=== PATIENT | male | born 1980 | race American Indian/Alaskan Native ===

== ENCOUNTER 2019-08-05 03:19 | Emergency (ER) | payer SELFPAY ==
[2019-08-05] MEDS ORDERED: IBUPROFEN 600 MG TAB PO ONE ×2 (04:35→04:37)
[2019-08-05] MEDS ORDERED: ACETAMINOPHEN 325 MG TAB PO ONE (04:35)
[2019-08-05] MEDS ORDERED: ACETAMINOPHEN 325 MG TAB ONE (04:37)
--- NOTE | 2019-08-05 04:41 | XRay Report ---
LEFT HAND 3 VIEWS INDICATION / CLINICAL INFORMATION: left thumb injury. COMPARISON: None available. FINDINGS: No fracture, dislocation or soft tissue swelling is seen within the left hand or thumb. Joint spaces are well preserved. Signer Name: Reji Levy MD Signed: 08/05/2019 4:37 AM Workstation Name: [id number]
[2019-08-05 04:54] VITALS: BP 116/79
--- NOTE | 2019-08-05 04:57 | Emergency Department Report ---
ED Upper Extremity Inj HPI - General Chief Complaint: Extremity Injury, Upper Stated Complaint: LF THUMB PAIN Time Seen by Provider: 08/05/19 04:35 Source: patient Mode of arrival: Ambulatory Limitations: No Limitations - History of Present Illness Initial Comments: Patient is a 38-year-old male presents emergency room with complaints of left thumb pain that began around 1 AM. He states that his thumb got hit between a pallet and a door while at work. He states that he has fractured this thumb once in the past approximately 4 to 5 years ago. He denies any numbness or weakness. He has discomfort with movement. He states he also has a past medical history of asthma. He denies any allergies to medications. - Related Data Previous Rx's Medication Instructions Recorded Last Taken Type Naproxen 500 mg PO BID PRN #14 tablet 08/05/19 Unknown Rx Allergies Allergy/AdvReac Type Severity Reaction Status Date / Time No Known Allergies Allergy Unverified 08/05/19 03:54 ED Review of Systems ROS: Stated complaint: LF THUMB PAIN Other details as noted in HPI Comment: All other systems reviewed and negative ED Past Medical Hx - Past Medical History Hx Asthma: Yes - Surgical History Past Surgical History?: Yes Additional Surgical History: "rods and screws in R leg and ankle" - Medications Home Medications: Home Medications Medication Instructions Recorded Confirmed Last Taken Type Naproxen 500 mg PO BID PRN #14 tablet 08/05/19 Unknown Rx ED Physical Exam - General Limitations: No Limitations General appearance: alert, in no apparent distress - Head Head exam: Present: atraumatic, normocephalic - Eye Eye exam: Present: normal appearance - ENT ENT exam: Present: mucous membranes moist - Extremities Exam Extremities exam: Present: other (ttp to the left thumb interphalangeal joint, very small amount of edema, FROM of the left thumb, no obvious deformity, neurovascularly intact) - Neurological Exam Neurological exam: Present: alert, oriented X3 - Psychiatric Psychiatric exam: Present: normal affect, normal mood - Skin Skin exam: Present: warm, dry, intact ED Course Vital Signs 08/05/19 08/05/19 03:54 05:05 Temperature 98.1 F Pulse Rate 65 71 Respiratory 18 16 Rate Blood Pressure 116/79 O2 Sat by Pulse 96 100 Oximetry ED Medical Decision Making - Radiology Data Radiology results: report reviewed LEFT HAND 3 VIEWS INDICATION / CLINICAL INFORMATION: left thumb injury. COMPARISON: None available. FINDINGS: No fracture, dislocation or soft tissue swelling is seen within the left hand or thumb. Joint spaces are well preserved. Signer Name: Reji Levy MD Signed: 08/05/2019 4:37 AM Workstation Name: [id number] Transcribed By: TL Dictated By: Reji Levy MD Electronically Authenticated By: Reji Levy MD Signed Date/Time: 08/05/19436 DD/ 5 TD/TT: - Medical Decision Making Patient is a 38-year-old male presents emergency room with complaints of left thumb pain that began around 1 AM. He states that his thumb got hit between a pallet and a door while at work. He states that he has fractured this thumb once in the past approximately 4 to 5 years ago. He denies any numbness or weakness. He has discomfort with movement. He states he also has a past medical history of asthma. He denies any allergies to medications. on exam: ttp to the left thumb interphalangeal joint, very small amount of edema, FROM of the left thumb, no obvious deformity, neurovascularly intact. XR left hand: No fracture, dislocation or soft tissue swelling is seen within the left hand or thumb. Joint spaces are well preserved. pt given ibuprofen and tylenol. discussed all results with pt. pt given prescription for naproxen. advised pt Please take medication as prescribed as needed. May ice for 15 minutes at a time, rest, elevate the arm. Follow-up with an orthopedic doctor. Return to emergency room for any new or worsening symptoms. - Differential Diagnosis strain, sprain, fx, dislocation Critical care attestation.: If time is entered above; I have spent that time in minutes in the direct care of this critically ill patient, excluding procedure time. ED Disposition Clinical Impression: Injury of left thumb Qualifiers: Encounter type: initial encounter Qualified Code(s): S69.92XA - Unspecified injury of left wrist, hand and finger(s), initial encounter Disposition: DC-01 TO HOME OR SELFCARE Is pt being admited?: No Does the pt Need Aspirin: No Condition: Stable Instructions: Finger Sprain (ED) Additional Instructions: Please take medication as prescribed as needed. May ice for 15 minutes at a time, rest, elevate the arm. Follow-up with an orthopedic doctor. Return to emergency room for any new or worsening symptoms. Prescriptions: Naproxen 500 mg PO BID PRN #14 tablet PRN Reason: pain Referrals: DEA OBRIEN MD [Staff Physician] - 2-3 Days [facility] [Provider Group] - 2-3 Days Time of Disposition: 04:56 Print Language: MALTESE
== END 2019-08-05 05:05 | disposition home or self-care (01) ==
LOC: ED 03:19
DX: S69.92XA Unspecified injury of left wrist, hand and finger(s), initial encounter (principal); J45.909 Unspecified asthma, uncomplicated; Z79.899 Other long term (current) drug therapy; Z98.890 Other specified postprocedural states; W22.8XXA Striking against or struck by other objects, initial encounter; Y93.89 Activity, other specified; Y92.89 Other specified places as the place of occurrence of the external cause; Y99.0 Civilian activity done for income or pay